=== PATIENT | male | born 1980 | race Caucasian/White ===

== ENCOUNTER 2016-08-31 12:56 | Emergency (ER) | payer BC ==
--- NOTE | ~2016-08-31 | ER ---
PATIENT'S NAME: EZRA RUBIO [facility] AGE: 36 Y [address] ROOM: [place] [id number] LOCATION: [facility] ADMIT DATE: 08/31/2016 ER/Outpatient Report DISCHARGE DATE: 08/31/2016 FAMILY PHYSICIAN: Papito Sarabia MD ATTENDING PHYSICIAN: Zachary Hernandez Time of Arrival: 2058 hours. Time of Exam: 1300 hours. CHIEF COMPLAINT: Right shoulder pain. HISTORY OF PRESENT ILLNESS: The patient states yesterday he was pushing a car when he felt a pop in the right shoulder area. States then he has had pain in the top of his shoulder. It is painful when he attempts to abduct his right arm. There is no obvious deformity of his shoulder. He denies any numbness or tingling into his arm or hands. Denies any previous injury to his shoulder. ALLERGIES: NO KNOWN ALLERGIES. CURRENT MEDICATIONS: No current medications. PAST MEDICAL HISTORY: [place] to majority of his body. SOCIAL HISTORY: He states he works at the [employer]. Does smoke two packs per day. Denies use of drugs or alcohol on a regular basis. REVIEW OF SYSTEMS: All negative other than those mentioned in the HPI. PHYSICAL EXAMINATION: VITAL SIGNS: He weighed 71.9 kg. Blood pressure is 132/85, pulse of 87, respirations 16, temperature of 98.1, O2 saturation was 96% on room air. GENERAL: He is awake, alert, and oriented x4. SKIN: [place], warm, and dry. RESPIRATORY: Respirations are even and nonlabored. Lung sounds are clear throughout. HEART: Regular rate and rhythm. EXTREMITIES: Right radial and ulnar pulses are strong. He has a warm right hand. Able to make a hand grasp, but increased pain with any abduction PATIENT'S NAME: EZRA RUBIO [facility] AGE: 36 Y [address] ROOM: [place] [address] LOCATION: [facility] ADMIT DATE: 08/31/2016 ER/Outpatient Report DISCHARGE DATE: 08/31/2016 FAMILY PHYSICIAN: Papito Sarabia MD ATTENDING PHYSICIAN: Zachary Hernandez movement of his arm. LABORATORY DATA AND X-RAYS: X-ray was completed. Reviewed with Dr. Hernandez. No acute bony abnormality is seen. Radiology report pending. IMPRESSION: Strain to the right shoulder. PLAN: Home, rest, ice to the shoulder. Sling was given for support. He was given a prescription for [place]. He is to follow up with his primary provider in the next 1 to 2 days if symptoms persist or worsen. He verbalized understanding. NOAH PICKARD APRN FOR [facility]/thomas /[id number] d: 08/31/[id number] t: 09/02/16 1828, OUTPATIENT REPORT
== END 2016-08-31 13:49 | disposition disaster alternative care site (69) ==
LOC: GMED 12:56
DX: S46.911A Strain of unspecified muscle, fascia and tendon at shoulder and upper arm level, right arm, initial encounter (principal); F17.210 Nicotine dependence, cigarettes, uncomplicated; X50.0XXA Overexertion from strenuous movement or load, initial encounter